=== PATIENT | female | born 1995 | race African-American/Black ===

== ENCOUNTER → 2016-07-24 | Outpatient (CLI) | payer OTHER | LOC: ULTRA 11:51 | DX: N80.2 Endometriosis of fallopian tube (principal) ==

== ENCOUNTER → 2017-01-22 | Outpatient (CLI) | payer OTHER | LOC: ULTRA 01:15 → RAD 01:15 | DX: N60.01 Solitary cyst of right breast (principal); N60.02 Solitary cyst of left breast ==

== ENCOUNTER 2017-02-01 05:27 | Emergency (ER) | payer OTHER ==
[~2017-02-01] VITALS: Ht 167.6 cm; Wt 73.9 kg
[2017-02-01] MEDS ORDERED: FLAGYL500 MG PO (06:05)
[2017-02-01 06:19] VITALS: BP 117/62
[2017-02-02 23:13] LABS: CHLAMYDIA TRACHOMATIS-PCR Negative (Negative); NEISSERIA GONORRHEA-PCR Negative (Negative)
== END 2017-02-01 06:20 | disposition home or self-care (01) ==
LOC: ER 05:27
PROVIDERS: Emergency Medicine
DX: A59.9 Trichomoniasis, unspecified (principal); Z88.0 Allergy status to penicillin